=== PATIENT | female | born 1985 | race Caucasian/White ===

== ENCOUNTER 2016-10-10 19:24 | Emergency (ER) | payer OTHER ==
[~2016-10-10] VITALS: Ht 157.5 cm; Wt 64.4 kg
[~2016-10-10 19:24] MED LIST: BIOTIN 5000MCG PO; CIPRO500 MG PO; CLARITIN-D 121 EACH PO; COLON HERBA1 CAPSULE PO; DOXYCYCLINE HY100 M3 PO; ERYTHROMYC1 APPLICAT BOTH EYES; FLOXIN OTIC SOLN5 ML BOTH EARS; MOTRIN600 MG PO; MOTRIN800 MG PO; NAPROSYN500 MG PO; NO MEDS; PERCOCET 5/31 TABLET PO; PRENATAL TABLE1 EAC3 PO; PYRIDIUM200 MG PO; TAMIFLU75 MG PO; TESSALON PERLE100 MG PO; TYLENOL WITH C1 EACH PO; ULTRACET1 TABLET PO; VALIUM2 MG PO; VITAMIN B12-FO1 EACH PO; VITAMIN D400 UNI1 PO; ZITHROMAX Z-PA250 MG PO; ZITHROMAX250 MG; ZOFRAN ODT4 MG PO; [UNRECOGNIZED DRUG - OTHER]
[2016-10-10 20:16] LABS: ADD MIUA? YES; BILIRUBIN NEGATIVE; BLOOD LARGE; COLOR YELLOW ((YELLOW)); GLUCOSE (STRIP) NEGATIVE; KETONES NEGATIVE; LEUKOCYTES NEGATIVE; NITRITE NEGATIVE; PH, URINE 6.5 (5-8); PROTEIN (STRIP) NEGATIVE; SPECIFIC GRAVITY 1.025 (1.000-1.030)
[2016-10-10 20:27] LABS: HEMATOCRIT 40.9 % (36.0-46.0); MCH 29.7 PG (29.0-34.0); MCHC 34.5 G/DL (30.0-36.0); MCV 86.3 FL (83-99); MEAN PLAT.VOLUME 10.6 uM^3 (9.5-12.4); PLATELET COUNT 210 K/uL (156-360); RBC DIS.WIDTH-SD 40.1 % (39-53); RED BLOOD COUNT 4.74 M/uL (3.80-5.20); WHITE BLOOD COUNT 15.6 K/uL (4.1-10.2)
[2016-10-10 20:38] LABS: CHLORIDE 105 mEq/L (99-109); POTASSIUM 4.4 mEq/L (3.7-5.4); SODIUM 137 mEq/L (136-147)
[2016-10-10 20:39] LABS: GLUCOSE 94 mg/dL (70-99)
[2016-10-10 20:40] LABS: ANION GAP 9 MEQ/L (2-14)
[2016-10-10 20:41] LABS: TOTAL BILIRUBIN 0.2 mg/dL (0.0-1.0)
[2016-10-10 20:42] LABS: ALKALINE PHOSPHATASE 69 IU/L (3-129)
[2016-10-10 20:43] LABS: GFR ESTIMATE (CALCULATED) > 59 mL/min/
[2016-10-10 20:44] LABS: UREA NITROGEN (BUN) 7 mg/dL (9-23)
[2016-10-10 20:57] LABS: BACTERIA RARE; CASTS NONE SEEN /LPF; CRYSTALS NONE SEEN; EPITHELIAL CELLS RARE; MUCUS NONE SEEN; RED BLOOD CELLS 0-5 /HPF (0-5); UCUL ADDED? NO; WHITE BLOOD CELLS NONE SEEN /HPF (0-5)
[2016-10-10 21:24] LABS: QUANTITATIVE HCG 67350.4 MIU/ML
[2016-10-10 23:21] VITALS: BP 122/55
== END 2016-10-10 23:23 | disposition home or self-care (01) ==
LOC: EME 19:24
DX: O20.0 Threatened abortion (principal); R10.2 Pelvic and perineal pain; Z3A.09 9 weeks gestation of pregnancy; Z88.0 Allergy status to penicillin; Z88.6 Allergy status to analgesic agent
CPT/HCPCS: 76801; 80053; 81003; 84702; 85027; 99281; 99285

== ENCOUNTER 2017-01-26 09:17 | Emergency (ER) | payer OTHER ==
[~2017-01-26] VITALS: Ht 157.5 cm; Wt 60.2 kg
[2017-01-26 10:18] LABS: HEMATOCRIT 46.7 % (36.0-46.0); MCH 29.4 PG (29.0-34.0); MCHC 33.2 G/DL (30.0-36.0); MCV 88.6 FL (83-99); MEAN PLAT.VOLUME 11.2 uM^3 (9.5-12.4); PLATELET COUNT 266 K/uL (156-360); RBC DIS.WIDTH-CV 12.8 % (11.8-14.6); RBC DIS.WIDTH-SD 41.6 % (39-53); RED BLOOD COUNT 5.27 M/uL (3.80-5.20)
[2017-01-26 10:27] LABS: CHLORIDE 111 mEq/L (99-109); POTASSIUM 4.1 mEq/L (3.7-5.4); SODIUM 142 mEq/L (136-147)
[2017-01-26 10:29] LABS: GLUCOSE 102 mg/dL (70-99)
[2017-01-26 10:30] LABS: ANION GAP 11 MEQ/L (2-14)
[2017-01-26 10:31] LABS: TOTAL BILIRUBIN 0.4 mg/dL (0.0-1.0)
[2017-01-26 10:33] LABS: ALKALINE PHOSPHATASE 59 IU/L (3-129); GFR ESTIMATE (CALCULATED) > 59 mL/min/
[2017-01-26 10:34] LABS: UREA NITROGEN (BUN) 11 mg/dL (9-23)
[2017-01-26 10:42] LABS: QUANTITATIVE HCG < 4.0 MIU/ML
[2017-01-26 11:20] LABS: ADD MIUA? YES; BILIRUBIN NEGATIVE; BLOOD SMALL; COLOR YELLOW ((YELLOW)); GLUCOSE (STRIP) NEGATIVE; KETONES NEGATIVE; LEUKOCYTES NEGATIVE; NITRITE NEGATIVE; PROTEIN (STRIP) NEGATIVE; SPECIFIC GRAVITY 1.025 (1.000-1.030); UROBILINOGEN 0.2 MG/DL (0.2-1.0)
[2017-01-26 11:25] LABS: BACTERIA RARE /HPF; EPITHELIAL CELLS RARE /HPF; MUCUS TRACE /LPF; RED BLOOD CELLS 0-5 /HPF (0-5); UCUL ADDED? NO; URIC ACID CRYSTALS 2+ /HPF; WHITE BLOOD CELLS 0-5 /HPF (0-5)
[2017-01-26] MEDS ORDERED: FLEXERIL10 MG PO (12:41)
[2017-01-26] MEDS ORDERED: BENTYL20 MG PO (12:41)
[2017-01-26] MEDS ORDERED: PHENERGAN25 MG PR (12:41)
[2017-01-26] MEDS ORDERED: ZOFRAN ODT4 MG PO (12:41)
[2017-01-26 12:51] LABS: INFLUENZA A VIRAL ANTIGEN NEGATIVE; INFLUENZA B VIRAL ANTIGEN NEGATIVE
[2017-01-26 12:54] VITALS: BP 138/68
== END 2017-01-26 12:50 | disposition home or self-care (01) ==
LOC: EME 09:17 → EXP 09:17
PROVIDERS: Nurse Practitioner Family
DX: A08.4 Viral intestinal infection, unspecified (principal); Z87.891 Personal history of nicotine dependence
CPT/HCPCS: 80053; 81003; 84702; 85027; 87502; 99281; 99284; J1885

== ENCOUNTER 2017-11-24 16:39 | Emergency (ER) | payer OTHER ==
[~2017-11-24] VITALS: Ht 157.5 cm; Wt 66.4 kg
[~2017-11-24 16:39] MED LIST changes: +BENTYL20 MG PO; +FLEXERIL10 MG PO; +PHENERGAN25 MG PR
[2017-11-24 17:26] LABS: HEMATOCRIT 43.8 % (36.0-46.0); HEMOGLOBIN 14.9 G/DL (11.9-15.5); MCH 30.2 PG (29.0-34.0); MCV 88.8 FL (83-99); PLATELET COUNT 190 K/uL (156-360); RBC DIS.WIDTH-CV 12.6 % (11.8-14.6); RBC DIS.WIDTH-SD 41.1 % (39-53); RED BLOOD COUNT 4.93 M/uL (3.80-5.20)
[2017-11-24 17:38] LABS: CHLORIDE 101 mEq/L (99-109); POTASSIUM 3.9 mEq/L (3.7-5.4); SODIUM 140 mEq/L (136-147)
[2017-11-24 17:40] LABS: GLUCOSE 91 mg/dL (70-99)
[2017-11-24 17:44] LABS: CREATININE 0.8 mg/dL (0.6-1.3); GFR ESTIMATE (CALCULATED) > 59 mL/min/
[2017-11-24 17:45] LABS: UREA NITROGEN (BUN) 15 mg/dL (9-23)
[2017-11-24] MEDS ORDERED: MOTRIN800 MG PO (19:11)
[2017-11-24] MEDS ORDERED: ZOFRAN4 MG PO (19:19)
[2017-11-24 19:27] VITALS: BP 117/65
== END 2017-11-24 19:29 | disposition home or self-care (01) ==
LOC: EME 16:39
PROVIDERS: Physician Assistant Medical
DX: J10.1 Influenza due to other identified influenza virus with other respiratory manifestations (principal); F17.200 Nicotine dependence, unspecified, uncomplicated; F32.9 Major depressive disorder, single episode, unspecified; Z88.0 Allergy status to penicillin
CPT/HCPCS: 71046; 80048; 85027; 87502; 99281; 99284; J1885

== ENCOUNTER 2018-01-22 15:16 | Emergency (ER) | payer OTHER ==
[~2018-01-22] VITALS: Ht 157.5 cm; Wt 65.2 kg
[~2018-01-22 15:16] MED LIST changes: +ZOFRAN4 MG PO
[2018-01-22] MEDS ORDERED: MOTRIN600 MG PO (15:47)
[2018-01-22] MEDS ORDERED: CEFTIN250 MG PO (15:47)
[2018-01-22 16:01] VITALS: BP 130/95
== END 2018-01-22 16:02 | disposition home or self-care (01) ==
LOC: EME 15:16
DX: H66.93 Otitis media, unspecified, bilateral (principal); G43.909 Migraine, unspecified, not intractable, without status migrainosus; F32.9 Major depressive disorder, single episode, unspecified; Z88.0 Allergy status to penicillin; Z87.891 Personal history of nicotine dependence; Z88.5 Allergy status to narcotic agent
CPT/HCPCS: 99281; 99283; J1885; J8540